=== PATIENT | male | born 1990 | race Caucasian/White ===

== ENCOUNTER 2024-08-04 07:44 | Emergency (ER) | payer OTHER, SELFPAY ==
--- NOTE | ~2024-08-04 | XR_ITS ---
EXAMINATION: XR THORACIC SPINE CLINICAL INFORMATION: fall at work, upper back pain COMPARISON: CT cervical spine 08/04/2024. TECHNIQUE: 3 views of the thoracic spine were obtained. FINDINGS: The visualized ribs and lung are normal in appearance. Grossly normal appearance of the cardiac mediastinal silhouette. Thoracic vertebral body height, spacing and alignment are normal in appearance. No thoracic vertebral body compression deformities identified. The upper thoracic vertebral bodies are suboptimally visualized secondary to overlying opacities related to the upper extremities. XR/XR thoracic spine 3V IMPRESSION: Normal radiographs of the thoracic spine. Electronically signed by: Villa Marshall MD 08/04/2024 11:37 AM [facility]
--- NOTE | ~2024-08-04 | CT_ITS ---
EXAMINATION: CT CERVICAL SPINE WITHOUT CONTRAST CLINICAL INFORMATION: Fall at work. Neck pain. COMPARISON: None available. TECHNIQUE: Unenhanced CT of the cervical spine with multiple coronal and sagittal reformatted images This CT examination was performed using dose optimization techniques as appropriate, variously including the following: *Automated exposure control *Adjustment of mA and/or kV according to patient size (this includes techniques or standardized protocols for targeted exams where dose is matched to indication/reason for exam; i.e. extremities or head) *Use of iterative reconstruction technique DLP: 480 mGy-cm FINDINGS: Within the visualized mastoid air cells and middle ear cavities, no significant opacification noted. No fractures or acute appearing subluxations of the cervical spine noted. Vertebral body height, alignment and spacing are normal in appearance. Mild straightening of the cervical lordosis is present and likely relates to positioning during the examination. At C5-C6, a minimal posterior broad-based disc-osteophyte complex is partially visualized. No associated gross central or foraminal stenoses. At C6-C7: A mild anterior broad-based disc-osteophyte complex is noted. Partial visualization is made of a minimal posterior broad-based disc bulge. No gross central or foraminal stenoses are noted. No prevertebral fluid collections or soft tissue inflammatory changes identified. The visualized lung apices are clear. Normal appearance of the thyroid. Within the incidentally visualized intracranial structures, no focal parenchymal lesions of the brain or gross abnormal extra-axial fluid collections identified. CT/CT cervical spine wo IV con IMPRESSION: *No acute abnormalities. *Minimal chronic spondylosis at C5-C6 and C6-C7 as noted above. Electronically signed by: Villa Marshall MD 08/04/2024 11:34 AM [facility]
[2024-08-04 07:50] VITALS: BP 142/100; PULSE 74; RESP 16; TEMP 37.1; O2SAT 97; BMI 27.5
--- NOTE | 2024-08-04 08:06 | ED_ITS ---
HPI - General Adult General Chief complaint: Neck Pain/Injury Stated complaint: upper back and neck inj at work fall Time Seen by Provider: 08/04/24 08:06 Source: patient Mode of arrival: ambulatory Limitations: no limitations History of Present Illness ED Provider: Aranza MELARA narrative: Patient is a 34-year-old male presenting to the ED with complaint of neck and upper back pain after a fall at work this morning. States he was attempting who open the door of his work van but it was stuck. He then began to use 2 hands to attempt to open the door when the handle broke off, causing him to fall backwards onto the ground. No head strike, denies loss of consciousness. Has had neck and upper back pain since. Worse with neck movement. Denies headache or visual changes. Denies any weakness, numbness, tingling to extremities. complaint: neck and back pain Onset (ago): hour(s) Location: neck and back Severity: moderate Quality: aching Pain Consistency: colicky Relieving factors: rest Exacerbating factors: movement Associated symptoms: denies other symptoms Treatments prior to arrival: none Related Data Previous Rx's ?Medication ?Instructions ?Recorded cyclobenzaprine 5 mg tablet 5 mg PO TID PRN muscle spasm #10 08/04/24 tabs lidocaine 5 % topical patch 1 patch topical DAILY #15 ea 08/04/24 Allergies Allergy/AdvReac Type Severity Reaction Status Date / Time No Known Allergies Allergy Verified 08/04/24 07:52 [No Known Allergies*] Review of Systems Review of Systems: As per HPI Yes all other systems are reviewed and are negative Constitutional: Constitutional: Reports as per HPI [facility] Social History Social History Advance Directives: No Advance Directives Information Provided: No Physical Exam ED Vital Signs: Vital Signs - 24 hr 08/04/24 07:50 08/04/24 12:05 08/04/24 12:19 Temperature 98.7 F 99.2 F 99.2 F Pulse Rate 74 59 59 Respiratory Rate 16 16 16 Blood Pressure 142/100 H 129/83 129/83 Pulse Oximetry 97 96 96 Oxygen Delivery Method Room Air Room Air Room Air BMI result Body Mass Index 27.5 Vital signs have been reviewed and appear to be correct. Blood pressure elevated. Heart rate normal. Respiratory rate normal. Temperature normal. Oxygen saturation normal. Const General: cooperative, healthy appearing and no acute distress Orientation/consciousness: oriented to person, oriented to place, oriented to time and patient oriented x3 Limitations: no limitations HENMT Head: Yes normocephalic and Yes atraumatic Ears: external ears normal General nose exam: Normal external nose present Face and sinus: Yes face symmetric Mouth: oropharynx normal and moist mucous membranes Throat: Yes uvula midline Eyes Pupils: Equal, round and reactive pupils present Neck Neck: Yes normal visual inspection and Yes supple Resp Effort & Inspection: normal respiratory effort and able to speak in complete sentences Auscultation: clear to auscultation bilaterally Cardio Rate: regular rate Rhythm: regular rhythm Heart sounds: S1 normal heart sound present and S2 normal heart sound present GI Palpation (GI): Soft to palpation and nontender Auscultation: normoactive bowel sounds General: Yes no CVA tenderness Back/Spine/Pelvis Back: no CVA tenderness Cervical Spine: normal cervical lordosis, cervical ROM normal, cervical muscular tenderness, pain with cervical ROM, No Cervical spine tenderness and No step off deformity Thoracic/Lumbar Spine: thoracic and lumbar spine normal to inspection, thoraco- lumbar ROM normal and No thoracic spinal tenderness Skin General skin exam: elasticity normal and turgor normal Neuro General: oriented to person, oriented to place, oriented to time, patient oriented x3, moves all extremities, no focal motor deficits and CN's II-XI intact bilaterally Cranial nerves: Yes Equal, round and reactive pupils present Cognition (Neuro): normal cognition Extrem General: Yes full ROM, Yes no pedal edema and Yes no calf tenderness Psych Mental Status: mental status grossly normal Affect: normal affect Thought process: Normal thought process present Medications Administered Discontinued Medications Generic Name Dose Route Start Last Admin Trade Name Vesna PRN Reason Stop Dose Admin Acetaminophen 650 mg 08/04/24 09:23 08/04/24 09:51 Acetaminophen 325 Mg Tablet PO 08/04/24 09:24 650 mg ONCE ONE Administration Ibuprofen 600 mg 08/04/24 09:23 08/04/24 09:51 Ibuprofen 600 Mg Tablet PO 08/04/24 09:24 600 mg ONCE ONE Administration Medical Decision Making Medical Decision Making [facility] Narrative: Patient is a 34-year-old male presenting to the ED with complaint of neck and upper back pain after a fall at work this morning. On exam patient is awake, A+Ox3, VS WNL, afebrile, normal neurological exam without focal deficits, physical exam findings as above. Given reported symptoms and physical exam findings, initial differential includes cervical strain, thoracic strain, vertebral fracture or subluxation. X-ray and CT notable for no acute fractures or subluxation. My interpretation is in agreement with the radiologist's interpretation. Will discharge home with prescription for Flexeril lidocaine patches. Return precautions discussed. Follow up with PCP. Patient verbalized understanding of and agreement with plan. Differential Diagnosis Differential Diagnoses: The differential diagnosis associated with the presentation includes As per [facility] Admission/Observation Consideration of admission/observation: Escalation of care including admission/observation considered Patient would have been admitted to the hospital had their work up had any findings where hospital admission was appropriate and their clinical presentation warranted hospital admission. Independent Interpretation I performed an independent interpretation of an: Plain X-Ray Interpretation: CT c-spine and thoracic xray are without evidence of acute fracture or subluxation Radiology Impression Discussion of test interpretation with radiology: I have reviewed the radiologist's reading. Radiologist Impression: CT/CT cervical spine wo IV con IMPRESSION: *No acute abnormalities. *Minimal chronic spondylosis at C5-C6 and C6-C7 as noted above. XR/XR thoracic spine 3V IMPRESSION: Normal radiographs of the thoracic spine. External Record Review External record reviewed: Inpatient record, Office record and Outpatient record Prescription Management I considered prescription management with: Pain Medication and Other Discharge Plan Discharge Clinical Impression: Strain of neck muscle Patient Disposition: Home, Self-Care Instructions: Cervical Strain (DC) Additional Instructions: You were evaluated in the emergency department with complaint of neck pain. Your imaging did not show any evidence of a fracture or other concerning findings. Your pain is likely related to a muscle strain. We recommend taking 600mg ibuprofen or 650mg Tylenol. If necessary, you can alternate these medications every three hours. For example, at noon take Tylenol, then at 3:00 take ibuprofen, then at 6:00 take Tylenol, etc. You are also being prescribed a muscle relaxer which you can use up to every 8 hours as needed. You are also being prescribed topical lidocaine patches which you can wear for up to 12 hours in a 24 hour period. Do not apply heat directly over the patches. You should follow up with your primary care provider as you may require physical therapy to improve your symptoms. Return to the emergency department if you develop worsening neck pain or stiffness, new weakness, numbness, or tingling to your arm, severe headaches, or any other concerning symptoms. Follow up with [facility] if you feel you are unable to return to work. [facility] [address] [place] [address] Prescriptions: New lidocaine 5 % adhesive patch,medicated 1 patch topical DAILY Qty: 15 0RF Rx Instructions: leave on most painful area for up to 12 hrs cyclobenzaprine 5 mg tablet 5 mg PO TID PRN (Reason: muscle spasm) Qty: 10 0RF Stand Alone Forms: Work/School Release Interventions: ED Discharge Assessment Last Done: 08/04/24 12:19 Discharge Date/Time: 08/04/24 12:19 Print Language: Malay
--- OUTSIDE RECORDS SUMMARY | 2024-08-04 08:08 | XMS_ITS | Continuity of Care Document ---
Author Organization [facility] Adult Address [address] [place] [address]- Care Team Providers Care Design Leader Name Role Phone Not on Staff, PCP Primary Care Physician Unavail able Encounter [facility] Date(s): 01/25/23 - 02/24/23 [facility] [address] [place] [address]- Attending Physician: Camron Loredo Admitting Physician: AdmCamron miramontes Referring Physician: Admtr Ar8 Allergies, Adverse Reactions, Alerts No Known Allergies Immunizations Given and Recorded Vaccine Date Status Refusal Reason SARS-CoV-2 (COVID-19) mRNA BNT-162b2 vac 06/02/21 Recorded SARS-CoV-2 (COVID-19) mRNA BNT-162b2 vac 05/12/21 Recorded tetanus-diphtheria toxoids (Td) 08/16/18 Recorded tetanus-diphtheria toxoids (Td) 05/07/04 Given tetanus/diphtheria/pertussis, acel(Tdap) 06/05/17 Recorded tetanus/diphtheria/pertussis, acel(Tdap) 1 02/10/09 Given influenza virus vaccine, inactivated 2 07/20/10 Gi stephanie Meningococcal Conjugate Vaccine 02/11/08 Given Varicella Virus Vaccine 12/31/06 Given Varicella Virus Vaccine 01/20/98 Given Poliovirus Vaccine, Inactivated 01/20/98 Given Poliovirus Vaccine, Inactivated 03/30/94 Given Poliovirus Vaccine, Inactivated 92 Given Poliovirus Vaccine, Inactivated 92 Given Measles/Mumps/Rubella Virus Vaccine 01/10/98 Given Measles/Mumps/Rubella Virus Vaccine 06/08/94 Given hepatitis B pediatric vaccine 01/07/98 Given hepatitis B pediatric vaccine 04/28/97 Given hepatitis B pediatric vaccine 03/24/97 Given hepatitis B pediatric vaccine 92 Given diphtheria/tetanus/pertussis, acel(DTaP) 01/07/98 Given diphtheria/tetanus/pertussis, acel(DTaP) 03/30/94 Given diphtheria/tetanus/pertussis, acel(DTaP) 01/25/93 Given diphtheria/tetanus/pertussis, acel(DTaP) 92 Given diphtheria/tetanus/pertussis, acel(DTaP) 92 Given Haemophilus B Conj Vaccine (oldterm) 12/12/94 Give n Haemophilus B Conj Vaccine (oldterm) 08/17/94 Give n Haemophilus B Conj Vaccine (oldterm) 05/02/93 Give n 1Admin Note: vis 07/21/08 vis given 02/10/09 2Admin Note: vis 04/12/10 Social History Social History Type Response Smoking Status Current every day sm oker; Type: Cigarettes entered on: 11/14/14 Sex Patient Care team information Care Team Personnel Name: Not on Staff, PCP Position: [facility] Physician (General Medicine) Member Role: PCP Care Team Related Persons Name: MAGDA KEARNS Address: [place] [address] Name: GAIL YOO Address: [address] [address] Name: ZUHAIR YOO Address: [address] [address]
--- OUTSIDE RECORDS SUMMARY | 2024-08-04 08:08 | XMS_ITS | Continuity of Care Document ---
Author Organization [facility] Address [address] [place] [address]- Care Team Providers Care Assistant City Attorney Name Role Phone Not on Staff, PCP Primary Care Physician Unavail able Encounter [facility] Date(s): 07/07/22 - 08/06/22 [facility] [address] [place], [place] [address] Attending Physician: Camron Loredo Admitting Physician: Camron Loredo Referring Physician: AdmtrCamron Allergies, Adverse Reactions, Alerts No Known Allergies Immunizations Given and Recorded Vaccine Date Status Refusal Reason influenza virus vaccine, inactivated 1 07/20/10 Gi stephanie tetanus/diphtheria/pertussis, acel(Tdap) 2 02/10/09 Given Meningococcal Conjugate Vaccine 02/11/08 Given Varicella Virus Vaccine 12/31/06 Given Varicella Virus Vaccine 01/20/98 Given tetanus-diphtheria toxoids (Td) 05/07/04 Given Poliovirus Vaccine, Inactivated 01/20/98 Given Poliovirus [...] (oldterm) 05/02/93 Give n 1Admin Note: vis 04/12/10 2Admin Note: vis 07/21/08 vis given 02/10/09 Social History Social History Type Response Smoking Status Current every day sm oker; Type: Cigarettes entered on: 11/14/14 Sex Patient Care team information Care Team Personnel Name: Not on Staff, PCP Position: [facility] Physician (General Medicine) Member Role: PCP Care Team Related Persons Name: MAGDA KEARNS Address: [place] [address] Name: GAIL YOO Address: [address] [address]
--- OUTSIDE RECORDS SUMMARY | 2024-08-04 08:08 | XMS_ITS | Continuity of Care Document ---
Author Organization [facility] Address [address] [place] [address]- Care Team Providers Care Book Reviewer Name Role Phone Not on Staff, PCP Primary Care Physician Unavail able Encounter [facility] Date(s): 10/30/22 - 02/24/23 [facility] [address] [place] [address]- Attending Physician: Adore Corbin Allergies, Adverse Reactions, Alerts No Known Allergies [...] Type Response Smoking Status Current every day soo oktong; Type: Cigarettes entered on: 11/14/14 Sex Patient Care team information Care Team Personnel Name: Not on Staff, PCP Position: S Physician (General Medicine) Member Role: PCP Care Team Related Persons Name: MAGDA KEARNS Address: [place] [address] Name: GAIL YOO Address: [address] [address] Name: ZUHAIR YOO Address: [address] [address]
--- OUTSIDE RECORDS SUMMARY | 2024-08-04 08:08 | XMS_ITS | Continuity of Care Document ---
Author Organization [facility] Address [address] [place] [address]- Care Team Providers Care Meter Tester Polyphase Name Role Phone Not on Staff, PCP Primary Care Physician Unavail able Encounter [facility] Date(s): 07/07/22 - 07/14/22 [facility] [address] [place] [address]- Encounter Diagnosis Fall on steps(Discharge Diagnosis) - 07/07/22 Pain of right scapula(Discharge Diagnosis) - 07/07/22 Attending Physician: Anita Castanon Allergies, Adverse Reactions, Alerts No Known Allergies [...] 2Admin Note: vis 07/21/08 vis given 02/10/09 Medications No Known Medications Problem List Diagnosis Diagnosis Type Effective Dates Health Status Cl inical Service Informant Fall on steps Discharge Diagnosis 07/07/22 Pain of right scapula Discharge Diagnosis 07/07/22 Vital Signs Most recent to oldest [Reference Range]: 1 Height 162.56 cm (07/07/22 1:21 PM) Oxygen Saturation [94-100 %] 97 % (07/07/22 1:21 PM) Pulse Rate [55-90 bpm] 72 bpm (07/07/22 1:21 PM) Blood Pressure [90-138/55-84 mm Hg] 152/ 81mm Hg *H* (07/07/22 1:21 PM) Respiratory Rate [16-30 br/min] 16 br/mi n (07/07/22 1:21 PM) Temperature [96.8-100.4 DegF] 97.9 DegF (07/07/22 1:21 PM) Mode of Delivery (Oxygen) Room air (07/07/22 1:21 PM) Blood pressure sites Arm, left (07/07/22 1:21 PM) Temperature Route Temporal (07/07/22 1:21 PM) Social History Social History Type Response Smoking Status Current every day sm oker; Type: Cigarettes entered on: 11/14/14 Sex Patient Care team information Care Team Personnel Name: Not on Staff, PCP Position: S Physician (General Medicine) Member Role: PCP Care Team Related Persons Name: MAGDA KEARNS Address: [place] [address] Name: GAIL YOO Address: [address] [address]
[2024-08-04] MEDS: Acetaminophen 325 MG TABLET 650 MG PO (09:51)
[2024-08-04] MEDS: Ibuprofen 600 MG TABLET PO (09:51)
[2024-08-04 12:05] VITALS: BP 129/83; PULSE 59; RESP 16; TEMP 37.3; O2SAT 96
[2024-08-04 12:19] VITALS: BP 129/83; PULSE 59; RESP 16; TEMP 37.3; O2SAT 96
== END 2024-08-04 12:19 | disposition home or self-care (01) ==
PROVIDERS: Emergency Provider Emergency Medicine; PCP Internal Medicine
DX: S16.1XXA Strain of muscle, fascia and tendon at neck level, initial encounter (principal); W19.XXXA Unspecified fall, initial encounter; Y93.89 Activity, other specified; Y92.096 Garden or yard of other non-institutional residence as the place of occurrence of the external cause; Y99.0 Civilian activity done for income or pay
CPT/HCPCS: 72072; 72125; 99283; 99284